=== PATIENT | male | born 1955 | race Caucasian/White ===

== ENCOUNTER 2018-02-14 23:46 | Emergency (ER) | payer BC, OTHER ==
[~2018-02-14] VITALS: Ht 182.9 cm; Wt 93.0 kg
--- NOTE | ~2018-02-14 | EKG ---
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: PAMELA : 1955 Requested By: John Adam Order Number: [id number] MD: Terry Cueva Measurements Intervals [place] Rate: 68 P: 61 [place]: 182 QRS: 56 QRSD: 100 T: 24 QT: 423 QTc: 450 Interpretive Statements Sinus rhythm Borderline low voltage, extremity leads no significant abnormality Compared to ECG 11/10/2011 16:31:12 Sinus bradycardia no longer present Electronically Signed On 02-15-2018 8:39:28 CDT by Terry Cueva [email or web address] <ELECTRONICALLY SIGNED> By: Terry Cueva MD, [facility] 02/15/18 0839 D: 046 Terry Cueva MD, FACC /EPI
[~2018-02-14 23:46] MED LIST: MULTIVITAMINS PO; VICKS SINEX NASAL
[2018-02-15 00:10] LABS: BE(vivo) -0.3 mmol/L (-2 to +3); HCO3 25.7 mmol/L (22.0-26.0); PCO2 VENOUS 46.6 mmHg (41.0-51.0)
[2018-02-15 00:59] LABS: ABSOLUTE NEUTROPHILS 5.2 thou/uL (1.4-8.2); BASOPHILS 0.6 % (0.0-2.0); EOSINOPHILS 0.9 % (0.0-3.0); HEMATOCRIT 43.2 % (42.0-52.0); HEMOGLOBIN 14.7 gm/dL (14.0-18.0); LYMPHOCYTES 17.1 % (24.0-44.0); MCH 29.7 pg (26.0-34.0); MCV 87.5 fL (80.0-100.0); MONOCYTES 6.3 % (1.0-8.0); PLATELET COUNT 153 thou/uL (150-400); POLYS 75.1 % (36.0-66.0); RBC 4.94 mil/uL (4.50-6.00); RDW 15.3 % (10.5-14.5); WBC 6.9 thou/uL (4.0-11.0)
[2018-02-15 01:09] LABS: ANION GAP 8 mmol/L (7-16); BUN 21 mg/dL (7-18); CALCIUM 9.1 mg/dL (8.5-10.1); CHLORIDE 105 mmol/L (98-107); CO2 28 mmol/L (21-32); CREATININE 1.2 mg/dL (0.7-1.3); GLUCOSE 129 mg/dL (74-106); POTASSIUM 3.6 mmol/L (3.5-5.1); SODIUM 141 mmol/L (136-145)
[2018-02-15 01:17] LABS: APTT 23.7 Seconds (24.5-32.8); INR 1.1; PROTIME 10.9 Seconds (9.3-11.4)
[2018-02-15 01:18] LABS: ALBUMIN 3.9 g/dL (3.4-5.0); SGOT 26 U/L (15-37); SGPT 26 U/L (30-65); TOTAL BILIRUBIN 0.4 mg/dL (<0.1-1.0); TROPONIN-I < 0.04 ng/mL (<0.06)
[2018-02-15] MEDS ORDERED: VENTOLIN HFA 1818 GM INH (01:41)
[2018-02-15] MEDS ORDERED: PREDNISONE 20 M20 MG PO (01:41)
[2018-02-15] MEDS ORDERED: ZPAK PO (01:41)
[2018-02-15 02:09] VITALS: BP 135/77
== END 2018-02-15 02:09 | disposition home or self-care (01) ==
LOC: ER 23:46
PROVIDERS: Emergency Medicine
DX: J20.9 Acute bronchitis, unspecified (principal); J32.9 Chronic sinusitis, unspecified

== ENCOUNTER 2018-04-07 05:23 | Emergency (ER) | payer BC, OTHER ==
[~2018-04-07] VITALS: Ht 182.9 cm; Wt 95.3 kg
--- NOTE | ~2018-04-07 | EKG ---
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
[~2018-04-07 05:23] MED LIST changes: +PREDNISONE 20 M20 MG PO; +VENTOLIN HFA 1818 GM INH; +ZPAK PO
[2018-04-07 05:42] LABS: ABSOLUTE NEUTROPHILS 6.2 thou/uL (1.4-8.2); BASOPHILS 0.3 % (0.0-2.0); EOSINOPHILS 1.8 % (0.0-3.0); HEMATOCRIT 42.6 % (42.0-52.0); HEMOGLOBIN 14.9 gm/dL (14.0-18.0); LYMPHOCYTES 14.3 % (24.0-44.0); MCH 30.3 pg (26.0-34.0); MCHC 34.9 g/dL (28.0-37.0); MONOCYTES 6.3 % (1.0-8.0); PLATELET COUNT 143 thou/uL (150-400); POLYS 77.3 % (36.0-66.0); RBC 4.89 mil/uL (4.50-6.00)
[2018-04-07 05:50] LABS: CALCIUM 8.9 mg/dL (8.5-10.1); CREATININE 1.5 mg/dL (0.7-1.3); POTASSIUM 3.8 mmol/L (3.5-5.1)
[2018-04-07] MEDS ORDERED: TRIAMCINOLONE A80 G2 TOP (05:59)
[2018-04-07] MEDS ORDERED: ZYRTEC10 M5 PO (06:00)
[2018-04-07] MEDS ORDERED: ALLEGRA-D 24 H1 EACH PO (06:00)
[2018-04-07 06:32] LABS: BE(vivo) -0.7 mmol/L (-2 to +3); HCO3 22.9 mmol/L (22.0-26.0); PCO2 35.1 mmHg (35.0-45.0); pH 7.433 (7.360-7.450); sO2 96.3 % (92.0-98.0)
[2018-04-07] MEDS ORDERED: PREDNISONE50 MG PO (07:17)
[2018-04-07 07:53] VITALS: BP 117/73
== END 2018-04-07 07:45 | disposition home or self-care (01) ==
LOC: ER 05:23
PROVIDERS: Emergency Medicine
DX: J98.01 Acute bronchospasm (principal); Z90.89 Acquired absence of other organs; Z91.048 Other nonmedicinal substance allergy status